=== PATIENT | female | born 1995 | race Two or more races ===

== ENCOUNTER 2019-03-14 01:03 | Emergency (ER) | payer BC ==
[~2019-03-14] VITALS: Ht 167.6 cm; Wt 70.8 kg
[2019-03-14 01:11] VITALS: Ht 167.6 cm; Wt 70.8 kg
[2019-03-14 03:45] VITALS: BP 132/66
== END 2019-03-14 03:45 | disposition home or self-care (01) ==
LOC: ED 01:03
DX: K59.00 Constipation, unspecified (principal)